=== PATIENT | female | born 1950 | race Caucasian/White ===

== ENCOUNTER 2017-06-02 13:29 | Inpatient (IN) | payer BC ==
[2017-06-02] MEDS ORDERED: Sodium Chloride 0.9% 10 ML Syringe FLUSH PRN (14:09)
[2017-06-02] MEDS ORDERED: Ondansetron 4 MG/2 ML SDV IVPUSH PRN (14:09)
[2017-06-02] MEDS ORDERED: Zolpidem 5 MG Tab PO PRN (14:09)
[2017-06-02] MEDS ORDERED: Morphine 2 MG/ML Syringe IVPUSH PRN (14:09)
[2017-06-02] MEDS ORDERED: MOMETASONE FUROATE NASBOTH PRN (14:12)
[2017-06-02] MEDS ORDERED: Albuterol 6.7 GM Inhaler INH PRN (14:12)
[2017-06-02] MEDS ORDERED: cefTRIAXone 1 GM in Sodium Chloride 0.9% 50 ML IV SCH (14:30)
[2017-06-02] MEDS: Sodium Chloride 0.9% 1,000 ML IV SCH (16:18)
[2017-06-02] MEDS: Acetaminophen/oxyCODONE 325-5 MG Tab PO PRN (19:58)
[2017-06-02] MEDS: Heparin Sodium 5,000 Units/ML Vial SUBCUT SCH (22:11)
[2017-06-03] MEDS: Sodium Chloride 0.9% 1,000 ML IV SCH (02:28)
[2017-06-03] MEDS: Acetaminophen/oxyCODONE 325-5 MG Tab PO PRN (02:45)
[2017-06-03] MEDS: Heparin Sodium 5,000 Units/ML Vial SUBCUT SCH ×3 (06:19→21:56)
[2017-06-03] MEDS ORDERED: Non-Formulary Medication 1 Each (Fexofenadine/Pseudoephedrine [Allegra-D 24 Hour Tablet] 1 PO SCH (09:00)
[2017-06-03] MEDS: Ciprofloxacin 500 MG Tab PO SCH ×2 (11:15→21:55)
--- NOTE | 2017-06-03 12:25 | PN ---
DATE: 06/03/2017 SUBJECTIVE: Mrs. Tam Alvarez is a 66-year-old female who admitted to the hospital with complaints of increasing weakness, tiredness, and noted to have urinary tract infection, severe dehydration leading to acute renal failure. For the last 24 hours, the patient denies having any diarrhea. She complains of continued weakness at this time. The patient's IV line got infiltrated and could not get any more IV fluids. She is able to tolerate the oral diet well at this time. REVIEW OF SYSTEMS: Cardiovascular, respiratory, gastrointestinal, neurology, and constitutional were all evaluated. PHYSICAL EXAMINATION: Vital Signs: Temperature of 98.2, pulse of 67, blood pressure of 112/54, respiratory rate of 20, and saturating at 98% on room air. General Appearance: The patient is well oriented to time, place, and person. Follows commands spontaneously. Cardiovascular System: S1 and S2 heard with normal intensity. No gallops. Respiratory: Clear to auscultation bilaterally. No wheeze. No crepitations. Abdomen: Soft. Bowel sounds are positive. Nontender. No rigidity. Extremities: Mild edema in bilateral lower extremities. Chronic venous stasis dermatitis noted on the right lower extremity. MEDICATIONS: Reviewed. 1. Albuterol inhalation as needed. 2. Ceftriaxone 1 g daily. 3. Heparin 5000 subcutaneous q.8 hourly. 4. Morphine 2 mg IV q.2 hours as needed for pain. 5. Zofran 4 mg IV. 6. Percocet 5/325 mg every 4 hours as needed for pain. 7. Ambien 5 mg at bedtime as needed for sleep. LABORATORY DATA: Reviewed. WBC 7, hemoglobin 11.3, hematocrit 35.3, and platelet count 165. Sodium 136, potassium 3.8, chloride 101, bicarb 28, BUN 15, creatinine 1.3, and glucose 115. ASSESSMENT: 1. Urinary tract infection. 2. Weakness. 3. Acute renal failure. PLAN: 1. Urinary tract infection: The patient is noted to have E. coli in the urine culture, which is sensitive to ciprofloxacin and ceftriaxone. The patient's IV line got infiltrated and the patient does not want another IV line, so we will try with oral ciprofloxacin and we will closely follow. 2. Weakness: The patient continues to have weakness. This is mainly from severe dehydration. She was given IV fluids on this admission. We will encourage the patient to have good oral intake. We will encourage the patient to ambulate. We will closely follow. 3. Acute renal failure: This seems to be much improved. She had a creatinine up to 1.7 prior to coming to the hospital with IV hydration. Her creatinine is back to baseline at 1.3. Avoid any nephrotoxic agents. Dose adjust medications for renal function. Her estimated GFR is still 41, so the patient will be encouraged to have good oral intake. We will recheck a basic metabolic panel in the a.m. 4. DVT prophylaxis: Continue with heparin for DVT prophylaxis. 5. Possible discharge in a.m. if she remains hemodynamically stable. [facility] /[id number]
[2017-06-03] MEDS: traMADol 50 MG Tab PO PRN ×2 (14:46→22:11)
[2017-06-04] MEDS: Heparin Sodium 5,000 Units/ML Vial SUBCUT SCH (06:22)
[2017-06-04] MEDS: Ciprofloxacin 500 MG Tab PO SCH (08:54)
[2017-06-04 11:45] VITALS: BP 120/56
--- NOTE | 2017-06-05 02:06 | DISCH ---
HISTORY OF PRESENTING ILLNESS: Mrs. Sirena Turcios is a 66-year-old female with a medical history significant for hypertension, hyperlipidemia, was admitted to the hospital with complaints of increasing weakness and tiredness and has been treated as an outpatient for urinary tract infection, which did not improve her symptoms. She was noted to be dehydrated and also in acute renal failure at time of admission. The patient was admitted and was started on IV antibiotic with IV ceftriaxone. She was also given IV fluids, after which her creatinine has improved from 1.5 at the time of admission to 1.1. She remained hemodynamically stable. She has intermittent headaches, mainly from muscle spasm. She was able to ambulate well without any difficulty. She wanted to be discharged home. The patient is discharged home in stable condition. She will be advised to follow with her primary care physician in next 1 week of time. She was noted to have mild hypomagnesemia, requiring magnesium oxide. She will be discharged home on oral ciprofloxacin for next 5 days. Her urine culture from the clinic showed evidence of E. coli that is sensitive to ciprofloxacin. PHYSICAL EXAMINATION: On the day of discharge: Vital Signs: Temperature of 98.9, pulse of 74, blood pressure 122/55, respiratory rate of 20, saturating at 98% on room air. General Appearance: The patient is well oriented to time, place, and person. Follows commands spontaneously. Cardiovascular System: S1, S2 heard with normal intensity. No gallops. Respiratory System: Clear to auscultation bilaterally. No wheeze. No crepitations. Abdomen: Soft. Bowel sounds positive. Nontender. No rigidity. Extremities: No edema in bilateral lower extremities. Neurology: No gross focal neurological deficits. DISCHARGE MEDICATIONS: 1. Albuterol two puffs inhalation every 6 hours as needed. 2. Ciprofloxacin 500 mg oral twice a day for next 5 days. 3. Helen 1 tablet daily. 4. Cozaar 100 mg daily. 5. Magnesium oxide 250 mg twice a day for next 3 days. 6. Nasonex nasal spray as needed for allergies. 7. Benadryl 50 mg every 6 hours as needed. CONDITION ON ADMISSION: Poor. CONDITION ON DISCHARGE: Stable. DIET: Cardiac healthy diet. ACTIVITY: As tolerated. FOLLOW UP: With primary care physician in next 1 week of time. KAVYA Michaels #: [id number]
--- NOTE | 2017-06-05 07:06 | HP ---
HISTORY OF PRESENT ILLNESS: Mrs. Tam Alvarez is a 66-year-old female with medical history significant for hypertension, history of deep venous thrombosis, and pulmonary embolism in the remote past back in 1979, history of asthma, and seasonal allergies. She has been doctoring with the primary care physician in the last couple of days for what happened to be a urinary tract infection and dehydration with acute renal failure. The patient was treated as an outpatient with oral antibiotic, IV ceftriaxone, oral doxycycline, and oral ciprofloxacin but the patient continues to be doing worse and had failed her outpatient treatment requiring admission to the hospital. At this time, the patient complains of increasing weakness and tiredness. She grades the weakness as 4 to 5/10 in intensity, which got aggravated on exertion, relieved with rest. She also complains of having fevers and chills at home and mild headache. The patient denied any vomiting but complains of having nausea. She also complains of having diarrhea. She had at least 3-4 episodes of loose stools each day for the last 3 days and has been feeling very weak and dizzy also. She denies any ongoing chest pains. No shortness of breath. No abdominal pain but complains of abdominal distention after she had a diarrhea, like bloating sensation. The patient denied any history of chest pains on exertion. No history of dyspnea on exertion. No history of orthopnea or paroxysmal nocturnal dyspnea. The patient denied any history of hematemesis, hematochezia, or melenic stools. Normal bowel and bladder habits otherwise. REVIEW OF SYSTEMS: A complete review of system including skin, ear, nose, and throat, cardiovascular system, respiratory system, gastrointestinal system, genitourinary system, hematology, oncology, neurology, allergy, immunology, constitutional were all evaluated and were negative except for the above-said notes. PAST MEDICAL HISTORY: Significant for hypertension, pulmonary embolism, DVT in 1979, history of asthma, and seasonal allergies. SURGICAL HISTORY: Significant for laparoscopic cholecystectomy, , breast lumpectomy, and laser surgery in the past. FAMILY HISTORY: Patient says she was adopted, so no real family history at this time. SOCIAL HISTORY: The patient denied any history of tobacco use. No history of alcohol intake. ALLERGIES: The patient has seasonal allergies to environmental agents but no known drug allergies. PHYSICAL EXAMINATION: General: The patient is well oriented to time, place, and person. Follows commands spontaneously. Cardiovascular System: S1, S2 heard with normal intensity. No gallops. Respiratory System: Clear to auscultation bilaterally. No wheeze. No crepitations. Abdomen: Soft. Bowel sounds positive. Nontender. No rigidity. Extremities: No edema bilateral lower extremities. Venous stasis dermatitis noted on the right lower extremity. Neurology: No gross focal neurological deficits. LABORATORY DATA: As obtained from the clinic shows sodium 136, potassium 3.8, chloride 99, bicarb 27.5, creatinine 1.5, calcium 10.1, glucose 158, alkaline phosphatase 174, total bilirubin 0.4, AST 53, ALT 47, and total protein 6.9. Urine culture from May 29 shows evidence of E. coli resistant to ampicillin and ampicillin sulbactam, susceptible to ceftriaxone and ciprofloxacin. HOME MEDICATIONS: Include: 1. Benadryl 50 mg as needed. 2. Ciprofloxacin 500 mg oral twice a day. 3. Cozaar 100 mg daily. 4. Helen as needed. 5. Lipitor 20 mg daily. 6. Nasonex nasal spray. 7. Amoxicillin 500 mg capsule oral. ASSESSMENT: 1. Urinary tract infection. 2. Severe dehydration. 3. Acute renal failure. 4. Hypertension. 5. History of deep venous thrombosis and pulmonary embolism in the remote past. PLAN: 1. Urinary tract infection. The patient is noted to have UTI. Her urine culture is positive for E. coli, susceptible to ciprofloxacin and IV ceftriaxone. The patient has been on oral ciprofloxacin without much advantage, so we will have her on IV ceftriaxone at this time. We will also obtain blood cultures at this time. We will closely follow. 2. Severe dehydration. This is mainly from diarrhea, the patient had episodes of diarrhea 3-4 times a day for the last 3 days, resulting in dehydration and resulting in acute renal failure. Avoid nephrotoxic agents. Dose adjust medications for renal function. Recheck a basic metabolic panel in a.m. Keep her hydrated with IV fluids. If she continues to have diarrhea, then one might consider getting stool for C. diff toxin as she has been on oral antibiotics for few days. 3. Hypertension. The patient's blood pressure will be closely monitored. She is noted to be on Cozaar at home, but secondary to the acute renal failure, we will hold the Cozaar. Check her blood pressure and restart the Cozaar once her renal function is better. 4. DVT prophylaxis. The patient had history of DVT and PE in the past, back in 1979. We will have her on heparin 5000 units subcu q.8 hourly for DVT prophylaxis. 5. Code status. The patient wants to be full code. 6. Discussed with Jaime, nurse-practitioner from clinic regarding the plan of care. Discussed with the patient regarding the plan of care. Reviewed the labs and medications. Reviewed the old charts. [facility] /[id number]
--- NOTE | 2017-08-09 00:08 | DISCH ---
ADDENDUM: This is an addendum to my previously dictated discharge summary. ADMITTING DIAGNOSES: 1. Urinary tract infection. 2. Severe dehydration. 3. Acute renal failure. 4. Hypertension. DISCHARGE DIAGNOSES: 1. Urinary tract infection, resolved. 2. Severe dehydration, resolved with IV fluids. 3. Acute renal failure, resolved with IV fluids. [facility] /[id number]
== END 2017-06-04 13:59 | disposition home or self-care (01) | DRG 463 ==
LOC: DL.MS 13:41 → UNDOADMIN 13:41 → DL.MS 14:09
PROVIDERS: ADMIT Internal Medicine; ATTEND Internal Medicine
DX: N39.0 Urinary tract infection, site not specified (principal); E86.0 Dehydration; N17.9 Acute kidney failure, unspecified; R51 Headache; I10 Essential (primary) hypertension; Z86.718 Personal history of other venous thrombosis and embolism; B96.20 Unspecified Escherichia coli [E. coli] as the cause of diseases classified elsewhere; R53.1 Weakness; J45.909 Unspecified asthma, uncomplicated; Z79.899 Other long term (current) drug therapy
CPT/HCPCS: 36415; 80048; 83735; 84100; 85027; 87040; A9270-GY; J0696; J1644; J7030; J7050

== ENCOUNTER 2022-01-03 14:13 | Emergency (ER) | payer BC ==
[2022-01-03 14:46] VITALS: BP 137/92; PULSE 83
[2022-01-03] MEDS ORDERED: Acetaminophen 325 MG Tab ONE (15:06)
[2022-01-03] MEDS ORDERED: Acetaminophen 325 MG Tab PO ONE (15:10)
[2022-01-03 15:36] LABS: CORONAVIRUS COVID-19 NAA POSITIVE (NEGATIVE)
[2022-01-03 16:11] LABS: ANION GAP 15.3 mEq/L (7-13)
[2022-01-03] MEDS ORDERED: Magnesium Sulfate/Water 2 GM in Premix Bag 1 BAG IV ONE (16:24)
== END 2022-01-03 19:50 | disposition home or self-care (01) ==
LOC: DL.ED 14:13
DX: U07.1 COVID-19 (principal); I10 Essential (primary) hypertension; J45.909 Unspecified asthma, uncomplicated; E66.9 Obesity, unspecified; Z68.39 Body mass index [BMI] 39.0-39.9, adult; Z91.048 Other nonmedicinal substance allergy status; Z88.8 Allergy status to other drugs, medicaments and biological substances; Z79.82 Long term (current) use of aspirin; Z79.899 Other long term (current) drug therapy
CPT/HCPCS: 0240U; 36415; 70450; 71250; 80053; 81003; 82150; 83605; 83690; 83735; 83880; 84484; 85025; 85379; 85610; 87040; 93005; 93970; 96365; 96366; 99285; A9270; J3475

== ENCOUNTER 2023-08-31 12:52 | Emergency (ER) | payer BC ==
[2023-08-31 13:22] VITALS: BP 153/86; PULSE 87
== END 2023-08-31 13:35 | disposition home or self-care (01) ==
LOC: DL.ED 12:52
DX: R42 Dizziness and giddiness (principal); I10 Essential (primary) hypertension; J45.909 Unspecified asthma, uncomplicated; E11.9 Type 2 diabetes mellitus without complications; E66.9 Obesity, unspecified; Z68.34 Body mass index [BMI] 34.0-34.9, adult; Z86.16 Personal history of COVID-19; Z91.048 Other nonmedicinal substance allergy status; Z91.018 Allergy to other foods; Z79.899 Other long term (current) drug therapy; Z79.82 Long term (current) use of aspirin; Z79.01 Long term (current) use of anticoagulants
CPT/HCPCS: 93010; 99284; 99285